=== PATIENT | female | born 1955 | race Caucasian/White ===

== ENCOUNTER → 2021-07-10 15:52 | Outpatient (CLI) | payer OTHER, SELFPAY ==
--- NOTE | 2021-07-10 15:55 | DI.RAD.S_ITS ---
PROCEDURE: XR WRIST RT MIN 3V INDICATIONS: fall TECHNIQUE: 3 views of the wrist were acquired. COMPARISON: None. FINDINGS: Bones: Comminuted fractures can be seen of the distal radius, with intra-articular involvement. There is palmar angulation of the fracture fragments in relation to the radial shaft. There are also mildly displaced fractures seen of the distal ulna, including ulnar styloid fractures. No radiocarpal dislocation can be seen. No carpal bone fractures are detected. Degenerative changes are seen throughout, which are most prominent involving the 1st carpometacarpal joint. Milder degenerative changes are seen elsewhere. Soft tissues: There is associated soft tissue swelling. IMPRESSION: There are comminuted, moderately displaced, intra-articular fracture lines of the distal radius, with palmar angulation. Mildly displaced distal ulna fractures are seen. Dictated by: Igor Bateman M.D. on 07/10/2021 at 15:18 Approved by: Igor Bateman M.D. on 07/10/2021 at 15:20
== END ==
PROVIDERS: Referring Provider Physician Assistant; Visit Provider Physician Assistant
DX: S52.571A Other intraarticular fracture of lower end of right radius, initial encounter for closed fracture (principal); S52.611A Displaced fracture of right ulna styloid process, initial encounter for closed fracture; M25.431 Effusion, right wrist; W19.XXXA Unspecified fall, initial encounter
CPT/HCPCS: 73110

== ENCOUNTER 2021-07-10 16:44 | Emergency (ER) | payer OTHER, SELFPAY ==
[2021-07-10 16:56] VITALS: BP 129/60; PULSE 78; RESP 16; TEMP 37.2; O2SAT 100; BMI 19.4
[2021-07-10] MEDS: BUPIVACAINE 0.5% MDV 50 ML INJ (17:16)
--- NOTE | 2021-07-10 17:32 | DI.RAD.S_ITS ---
PROCEDURE: XR WRIST RT 2V INDICATIONS: reduction film TECHNIQUE: 2 views of the wrist were acquired. COMPARISON: [facility], , XR WRIST RT MIN 3V, 07/10/2021, 15:50. FINDINGS: Bones: On this post reduction view, the distal radius fractures demonstrate improved alignment. Distal ulnar fractures are also seen. Age-appropriate bony degenerative changes are seen. The overlying casting material limits evaluation of fine detail. Soft tissues: No significant soft tissue abnormality can be seen. IMPRESSION: The distal radius fractures are better aligned on this post casting study. Distal ulna fractures are again Dictated by: Igor Bateman M.D. on 07/10/2021 at 17:02 Approved by: Igor Bateman M.D. on 07/10/2021 at 17:03
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
--- NOTE | 2021-07-10 18:13 | DI.RAD.S_ITS ---
PROCEDURE: XR WRIST RT 2V INDICATIONS: fracture reduction TECHNIQUE: 2 views of the wrist were acquired. COMPARISON: [facility], CR, XR WRIST RT MIN 3V, 07/10/2021, 15:50. [facility], CR, XR WRIST RT 2V, 07/10/2021, 17:33. FINDINGS: Bones: Improved alignment of distal radial fracture accounting for differences in patient positioning, since 07/10/21. Ulnar fracture also noted. Scattered degenerative subchondral sclerosis and spurring. Soft tissues: No suspicious soft tissue calcifications. IMPRESSION: Improved alignment as above. Dictated by: Kei Deutsch M.D. on 07/10/2021 at 19:27 Approved by: Kie Deutsch M.D. on 07/10/2021 at 19:29
[2021-07-10] MEDS: KETOROLAC 30 MG/ML VIAL IM (18:33)
[2021-07-10 19:29] VITALS: TEMP 37.2
== END 2021-07-10 19:30 | disposition home or self-care (01) ==
PROVIDERS: Emergency Provider Physician Assistant
DX: S52.501A Unspecified fracture of the lower end of right radius, initial encounter for closed fracture (principal); S52.601A Unspecified fracture of lower end of right ulna, initial encounter for closed fracture; V19.9XXA Pedal cyclist (driver) (passenger) injured in unspecified traffic accident, initial encounter; Y93.55 Activity, bike riding
CPT/HCPCS: 25605; 73100; 73110; 96372; 99283; J1885

== ENCOUNTER → 2021-07-13 10:52 | Outpatient (CLI) | payer OTHER, SELFPAY ==
[2021-07-13 14:11] LABS: COVID19 -Nasal RAPID Negative (Negative)
== END ==
PROVIDERS: Visit Provider Nurse Practitioner
DX: Z20.822 Contact with and (suspected) exposure to COVID-19 (principal); Z01.812 Encounter for preprocedural laboratory examination
CPT/HCPCS: 87635

== ENCOUNTER 2021-07-14 11:47 | Day surgery (SDC) | payer OTHER, SELFPAY ==
[2021-07-13 12:17] VITALS: BMI 18.8
[2021-07-14] VITALS (8 sets, daily range): BP systolic 90–119; BP diastolic 47–73; PULSE 60–84; RESP 12–18; TEMP 36.7–37.1; O2SAT 96–100; BMI 18.8
[2021-07-14] MEDS: LACTATED RINGERS 1,000 ML 42 ML IV (12:49)
[2021-07-14] MEDS: ACETAMINOPHEN 325 MG TABLET 975 MG PO (12:49)
[2021-07-14] MEDS: GABAPENTIN 300 MG CAPSULE PO (12:49)
--- NOTE | 2021-07-14 13:20 | PM.PREOP ---
Pre-operative Note Interval Note History & Physical reviewed/Exam performed by Physician: Yes Changes to H&P: No
--- NOTE | 2021-07-14 13:35 | P.OP_ITS ---
Operative Date/Time/Diagnoses Date of procedure: 07/14/21 Time of procedure: 14:00 Pre-op diagnosis: Right distal radius fracture intra-articular Post-op diagnosis: same Procedure & Clinicians Procedure: Open reduction internal fixation of an intra-articular right distal radius fracture Same procedure as scheduled: Yes Indications: Right distal radius fracture Surgeon: Yan Johnson Click Yes if Unassisted: Yes Anesthesia Type: General Operative Notes Findings: Displaced intra-articular distal radius fracture with some dorsal comminution Closure Type: primary Specimen(s): none sent Applied: implant(s) (Arthrex distal radius plate) Estimated Blood Loss (mL): 5 Procedure in detail: On date of service, patient was met in the holding area where the operative site was signed and witnessed by the OR staff. The surgery was once again discussed with the patient and any remaining questions or concerns were answered to the patient's full satisfaction. Time-out was performed verifying patient's name procedure and operative site. Patient was taken back to the operating theater and placed on the operating table in a supine position. Great care was taken to ensure that all bony prominences were appropriately padded. Well-padded tourniquet was placed up along the upper extremity. Another time-out was performed verifying patient's name, procedure, and operative site. The upper extremity was then prepped and draped in the normal sterile fashion. Esmarch was used to exsanguinate the limb and the tourniquet was turned up to 250 mm of mercury. Fifteen blade was used to expose the distal radius. An incision was made over the FCR tendons. The FCR tendon was retracted and the floor of the tendon was opened with a 15 blade. The FPL tendon and muscle belly was retracted ulnarly giving us good visualization of the pronator quadratus. The pronator quadratus was excised off the distal radius using the 15 blade and then finished with a periosteal elevator. Next the brachia radialis attachment to the radial styloid was released to help with overall reduction. Retractors were placed allowing us good visualization of the distal radius as well as the shaft. A reduction maneuver was performed and a K-wire was placed holding a provisional reduction of the intra-articular distal radius fracture. C-arm was brought in to verify overall reduction. Once we were satisfied with the overall reduction, a plate was placed and held provisionally with K-wires. C-arm was once again used to verify plate positioning as well as reduction. The plate was then fixated to the distal fragment using locking screws. Lateral C-arm views were used to verify that the screws were not intra-articular or broaching the dorsal cortex. At this point we are able to use the plate to help fine tune the overall reduction. Patient has some translation of the distal fragment as well as a loss of height tilt and inclination. We were able to correct all of that using the plate to manipulate the distal fragment. Once we were satisfied with the overall reduction the plate was then secured to the shaft with a combination of locking and nonlocking screws. Next, 1 cm incision was made to the dorsal aspect of the wrist over the area of the dorsal c omminution. Patient had a piece of cortex that was right underneath the skin causing irritation. Fifteen blade was used to make an incision through skin and pickups and tenotomies were used to bluntly dissect down and were able to remove that cortical piece. This was replaced to the lateral aspect of the wrist where there was some gapping associated with the radial styloid fragment. Final x-ra ys were obtained. The wound was copiously irrigated and closed in a layered fashion. The wrist and hand were cleaned dried dressed. Patient was placed into a splint and taken to the PACU in stable condition. Complications: none Post-operative Condition: stable Disposition: PACU Plan for aftercare: Patient will follow our postoperative protocol for open reduction internal fixation of the distal radius.
[2021-07-14] MEDS: CEFAZOLIN 1 GM VIAL 2 GM IV (14:03)
--- NOTE | 2021-07-14 14:20 | SUR.OPER ---
PT presents with small 0.5 cm scrape on posterior side of right wrist along with bruising of right hand and fingers, and bilateral knees
--- NOTE | 2021-07-14 14:23 | SUR.OPER ---
Supine on padded OR bed, head on pillow, left arms secured on padded arm board at <90 degrees abduction, right arm draped free on padded arm table legs uncrossed, safety belt at thigh, tape over blanket over lower legs.
[2021-07-14] MEDS: BUPIVACAINE 0.25% W/ EPI 30 ML VIAL INJ (14:31)
--- NOTE | 2021-07-14 15:57 | SUR.PHASEI ---
1523 - Received to PACU after general anesthesia. Airway patent, self maintained. Report received from IVANNA Dinh and Dr Ojeda.
== END 2021-07-14 16:39 | disposition home or self-care (01) ==
PROVIDERS: PCP Internal Medicine; Referring Provider Orthopaedic Surgery; Visit Provider Anesthesiology
PROC: (CPT 25609; principal; 2021-07-14 13:15)
DX: S52.571A Other intraarticular fracture of lower end of right radius, initial encounter for closed fracture (principal); V19.3XXA Pedal cyclist (driver) (passenger) injured in unspecified nontraffic accident, initial encounter; K21.9 Gastro-esophageal reflux disease without esophagitis
CPT/HCPCS: 25609; J0690; J1100; J1885; J2250; J2405; J2704; J3010

== ENCOUNTER → 2025-10-20 06:47 | Outpatient (CLI) | payer OTHER, SELFPAY ==
--- NOTE | 2025-10-20 06:51 | DI.CT.S_ITS ---
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 Additional oblique axial 3.0 mm sections acquired through the pharynx. 3 mm thick coronal and sagittal reformats were generated. For radiation dose reduction, the following was used: automated exposure control. COMPARISON: None. FINDINGS: Image quality: Excellent. Lymph nodes: No enlarged lymph nodes seen throughout the neck. Vessels: Visualized vasculature appears patent. Neck spaces: The oropharynx, nasopharynx, and pharynx demonstrate no mucosal lesions. Thickening of the left true and false vocal folds (6/29). The epiglottis, vallecula, and tongue base all appear normal. Extramucosal spaces appear unremarkable. Glands: The parotid and submandibular glands appear normal. Thyroid gland demonstrates no significant abnormality. Miscellaneous: Visualized brain and orbits appear normal. Lung apices appear clear. Superficial soft tissues appear normal. Bones: No suspicious bony lesions. Mild air-fluid levels within the maxillary sinuses, may represent acute sinusitis. Degenerative changes of the spine. IMPRESSION: Thickening of the left true and false vocal folds. This may be secondary to process. Direct visualization could be obtained to exclude underlying neoplastic process. Dictated by: Pola Jerome M.D. on 10/20/2025 at 15:16 Approved by: Pola Jerome M.D. on 10/20/2025 at 15:20
[2025-10-20 07:22] LABS: Estimated Glomerular Filt Rate > 60 mL/min (>60)
== END ==
PROVIDERS: PCP Nurse Practitioner Family; Referring Provider Nurse Practitioner Family; Visit Provider Specialist
DX: J38.01 Paralysis of vocal cords and larynx, unilateral (principal)
CPT/HCPCS: 36415; 70491; 82565; Q9967